=== PATIENT | male | born 1930 | race Caucasian/White ===

== ENCOUNTER → 2017-11-03 | Emergency (ER) | payer OTHER ==
[~2017-11-03] VITALS: Ht 172.7 cm; Wt 84.4 kg
[~2017-11-03] MED LIST: ASA325 M1 PO; AVAPRO150 MG PO; CARAFATE SU1 G/10 ML PO; CLARITIN10 MG PO; COZAAR50 MG PO; INTESTINEX1 CA1 PO; ISOSORBIDE DINI30 MG PO; LIPITOR20 MG PO; LIPITOR40 MG PO; METFORMIN HCL500 MG PO; NEURONTIN800 MG PO; PLAVIX75 MG PO; PRILOSEC20 MG PO; SKELAXIN800 MG PO; TOPROL XL25 MG PO; TRIGLIDE50 MG PO; TRILIPIX135 MG PO; ZANTAC150 MG PO
== END | disposition left against medical advice (07) ==
LOC: ER 13:36
DX: Z53.20 Procedure and treatment not carried out because of patient's decision for unspecified reasons (principal)

== ENCOUNTER 2017-12-06 13:17 | Emergency (ER) | payer OTHER ==
[~2017-12-06] VITALS: Ht 180.3 cm; Wt 75.3 kg
[~2017-12-06 13:17] MED LIST changes: +AMLODIPINE BESYL5 MG PO; +CELEBREX100 MG PO; +ULTRACET PO
== END 2017-12-06 18:17 | disposition home or self-care (01) ==
LOC: ER 13:17
DX: L03.032 Cellulitis of left toe (principal); S92.352D Displaced fracture of fifth metatarsal bone, left foot, subsequent encounter for fracture with routine healing; W01.198D Fall on same level from slipping, tripping and stumbling with subsequent striking against other object, subsequent encounter

== ENCOUNTER 2017-12-09 07:15 | Outpatient (CLI) | payer OTHER | END 2017-12-09 07:21 | disposition home or self-care (01) | LOC: RAD 07:15 | DX: S93.492A Sprain of other ligament of left ankle, initial encounter (principal); S92.352A Displaced fracture of fifth metatarsal bone, left foot, initial encounter for closed fracture ==

== ENCOUNTER 2017-12-09 08:20 | Outpatient (CLI) | payer OTHER | END 2017-12-09 09:00 | disposition home or self-care (01) | LOC: NUCLEAR 08:20 | DX: S92.352A Displaced fracture of fifth metatarsal bone, left foot, initial encounter for closed fracture (principal); M81.0 Age-related osteoporosis without current pathological fracture ==